=== PATIENT | male | born 1955 | race Caucasian/White ===

== ENCOUNTER 2017-04-13 14:17 | Emergency (ER) | payer BC ==
[2017-04-13 14:25] VITALS: BP 144/89
--- NOTE | 2017-04-13 14:35 | UC ---
Throat Pain/Nasal Pérez HPI - HPI Summary HPI Summary: 2 days of right lower jaw pain - History of Current Complaint Chief Complaint: UCGeneralIllness Stated Complaint: JAW/EAR PAIN Time Seen by Provider: 04/13/17 14:30 Hx Obtained From: Patient Onset/Duration: Sudden Onset, Lasting Days, Still Present Severity: Moderate Pain Intensity: 5 Pain Scale Used: 0-10 Numeric Cough: None - Allergies/Home Medications Allergies/Adverse Reactions: Allergies Allergy/AdvReac Type Severity Reaction Status Date / Time No Known Allergies Allergy Verified 04/13/17 14:21 PMH/Surg Hx/FS Hx/Imm Hx Previously Healthy: Yes - Surgical History Surgical History: Yes Surgery Procedure, Year, and Place: RT HIP REPLACEMENT - Family History Known Family History: Positive: None - Social History Occupation: Retired Lives: With Family Alcohol Use: Occasionally Substance Use Type: None Smoking Status (MU): Never Smoked Tobacco Review of Systems Constitutional: Negative Skin: Negative Eyes: Negative ENT: Negative, Dental Pain, Ear Ache - right Respiratory: Negative Cardiovascular: Negative Gastrointestinal: Negative Genitourinary: Negative Motor: Negative Neurovascular: Negative Musculoskeletal: Negative Neurological: Negative Psychological: Negative Is Patient Immunocompromised?: No All Other Systems Reviewed And Are Negative: Yes Physical Exam Triage Information Reviewed: Yes Appearance: Well-Appearing, No Pain Distress, Well-Nourished Vital Signs: Initial Vital Signs Temp 98 F 04/13/17 14:22 Pulse 61 04/13/17 14:22 Resp 16 04/13/17 14:22 BP 144/89 04/13/17 14:22 Pulse Ox 99 04/13/17 14:22 Vital Signs Reviewed: Yes Eye Exam: Normal Eyes: Positive: Conjunctiva Clear ENT Exam: Normal ENT: Positive: Normal ENT inspection, Hearing grossly normal, Pharynx normal, TMs normal. Negative: Nasal congestion, Nasal drainage, Trismus, Muffled/ hoarse voice Dental Exam: Normal Dental: Positive: Percussion Tenderness @ - last molar right lower gum Neck exam: Normal Neck: Positive: Supple, Nontender, No Lymphadenopathy Respiratory Exam: Normal Respiratory: Positive: Chest non-tender, No respiratory distress, No accessory muscle use Cardiovascular Exam: Normal Cardiovascular: Positive: RRR, Pulses Normal, Brisk Capillary Refill Musculoskeletal Exam: Normal Musculoskeletal: Positive: Strength Intact, ROM Intact Neurological Exam: Normal Neurological: Positive: Alert, Muscle Tone Normal Psychological Exam: Normal Skin Exam: Normal Throat Pain/Nasal Course/Dx - Course Assessment/Plan: follow right lower dental pain with dentist this week and blood pressure in the next 2 weeks with provider at [facility] - Differential Dx/Diagnosis Differential Diagnosis/HQI/PQRI: Laryngitis, Otitis Media, Peritonsillar Abscess , Pharyngitis, Sinusitis, URI Provider Diagnoses: dental pain, highblood pressure with out diagnosis of hypertension Discharge - Discharge Plan Condition: Stable Disposition: HOME Prescriptions: Amoxicillin PO (*) [Amoxicillin 500 MG CAP*] 500 mg PO TID #30 cap Patient Education Materials: Hypertension (ED), Toothache (ED) Referrals: Danny Tracy MD [Primary Care Provider] - 2 Weeks Additional Instructions: follow with dentist this week
== END 2017-04-13 14:45 | disposition home or self-care (01) ==
LOC: UCEAST 14:17
DX: K08.89 Other specified disorders of teeth and supporting structures (principal); R03.0 Elevated blood-pressure reading, without diagnosis of hypertension
CPT/HCPCS: 99212; G0463

== ENCOUNTER 2019-08-07 19:16 | Emergency (ER) | payer MEDICARE, BC ==
[2019-08-07] MEDS ORDERED: Ibuprofen TAB* 600 MG PO ONE (19:41)
--- NOTE | 2019-08-07 19:41 | ED ---
Lower Extremity - HPI Summary HPI Summary: This patient is a 63 year old male presenting to [facility] with a chief complaint of left foot/leg pain. He states he was playing basketball when he started to feel the pain in his foot and it slowly traveled up his left leg. He states the most painful point is at the lateral aspect of the foot. He reports no PMHx or any problems with his lower extremities, except for a hip replacement on the right side. Medications reviewed, allergies noted. - History of Current Complaint Chief Complaint: EDExtremityLower Stated Complaint: LEG AND FOOT PAIN PER PT Time Seen by Provider: 08/07/19 19:25 Hx Obtained From: Patient Mechanism Of Injury: Unknown Pain Intensity: 5 Pain Scale Used: 0-10 Numeric - Allergies/Home Medications Allergies/Adverse Reactions: Allergies Allergy/AdvReac Type Severity Reaction Status Date / Time No Known Allergies Allergy Verified 08/07/19 19:21 Home Medications: Home Medications Rosuvastatin Calcium 10 mg PO DAILY 08/07/19 [History Confirmed 08/07/19] PMH/Surg Hx/FS Hx/Imm Hx Endocrine/Hematology History: Denies: Hx Diabetes Cardiovascular History: Denies: Hx Hypertension, Hx Pacemaker/ICD Respiratory History: Denies: Hx Asthma Sensory History: Denies: Hx Hearing Aid Psychiatric History: Denies: Hx Panic Disorder - Surgical History Surgery Procedure, Year, and Place: RT HIP REPLACEMENT Infectious Disease History: No Infectious Disease History: Denies: Hx Clostridium Difficile, Hx Hepatitis, Hx Human Immunodeficiency Virus (HIV), Hx of Known/Suspected MRSA, Hx Shingles, Hx Tuberculosis, Hx Known/ Suspected VRE, Hx Known/Suspected VRSA, History Other Infectious Disease, Traveled Outside the [place] in Last 30 Days - Family History Known Family History: Negative: Cardiac Disease - Social History Alcohol Use: Occasionally Substance Use Type: Reports: None Smoking Status (MU): Never Smoked Tobacco Review of Systems Negative: Fever Positive: Other - Left foot/leg pain All Other Systems Reviewed And Are Negative: Yes Physical Exam - Summary Physical Exam Summary: Constitutional: Well-developed, Well-nourished, Alert. (-) Distressed Skin: Warm, Dry HENT: Normocephalic; Atraumatic Eyes: Conjunctiva normal Neck: Musculoskeletal ROM normal neck. (-) JVD, (-) Stridor, (-) Tracheal deviation Cardio: Rhythm regular, rate normal, Heart sounds normal; Intact distal pulses; Radial pulses are 2+ and symmetric. (-) Murmur Pulmonary/Chest wall: Effort normal. (-) Respiratory distress, (-) Wheezes, (-) Rales Abd: Soft, (-) tenderness, (-) Distension, (-) Guarding, (-) Rebound Musculoskeletal: (-) Edema. Tenderness on the dorsal aspect of the foot near the lateral malleolus. Patient does walk with an abnormal gait due to pain. No crepitus. Lymph: (-) Cervical adenopathy Neuro: Alert, Oriented x3 Psych: Mood and affect Normal Triage Information Reviewed: Yes Vital Signs On Initial Exam: Initial Vitals Temp Pulse Resp BP Pulse Ox 98.5 F 76 15 145/103 99 08/07/19 19:20 08/07/19 19:20 08/07/19 19:20 08/07/19 19:20 08/07/19 19:20 Vital Signs Reviewed: Yes Procedures - Sedation Patient Received Moderate/Deep Sedation with Procedure: No Diagnostics - Vital Signs Vital Signs Temp Pulse Resp BP Pulse Ox 08/07/19 19:20 98.5 F 76 15 145/103 99 - Laboratory Lab Statement: Any lab studies that have been ordered have been reviewed, and results considered in the medical decision making process. - Radiology Left foot XR Radiology Interpretation Completed By: ED Physician Summary of Radiographic Findings: Negative for fracture. Pending official radiologist report. Lower Extremity Course/Dx - Course Course Of Treatment: Patient is here with pain in his left foot thirtieths into his leg. Patient has point tenderness on his foot on the lateral aspect of his foot just distal to his lateral malleolus. Patient has no evidence of infection on exam. Patient is neurovascularly intact. Patient had an actual showed no obvious fracture. Patient was sent in by his son who is a family medicine physician in [place] who was concerned about necrotizing fasciitis. Patient does not have any evidence of infection on exam. Patient's son was called and was relieved by the news of my exam. Patient was offered a post op shoe for comfort but declined. - Diagnoses Provider Diagnoses: Left foot pain Discharge ED - Sign-Out/Discharge Documenting (check all that apply): Patient Departure - Discharge - Discharge Plan Condition: Stable Disposition: HOME Patient Education Materials: Foot Sprain (ED) Referrals: Danny Tracy MD [Medical Doctor] - 3 Days Additional Instructions: Take Motrin for pain. Elevate your foot at the end of the day. Apply ice. - Billing Disposition and Condition Condition: STABLE Disposition: Home - Attestation Statements Document Initiated by Onofre: Yes Documenting Scribe: Ben Morton Provider For Whom Onofre is Documenting (Include Credential): Fito Nguyen MD Scribe Attestation: I, Ben Morton, scribed for Fito Nguyen MD on 08/07/19 at 2048. Scribe Documentation Reviewed: Yes Provider Attestation: The documentation as recorded by the Ben arevalo accurately reflects the service I personally performed and the decisions made by me, Fito Nguyen MD Status of Scribe Document: Viewed
[2019-08-07 20:35] VITALS: BP 135/91
== END 2019-08-07 20:36 | disposition home or self-care (01) ==
LOC: ED 19:16
DX: M79.672 Pain in left foot (principal); Z96.641 Presence of right artificial hip joint
CPT/HCPCS: 99281; A9270-GY